=== PATIENT | female | born 1970 | race Two or more races ===

== ENCOUNTER 2016-10-03 16:50 | Emergency (ER) | payer SELFPAY ==
[2016-10-03 17:14] VITALS: BP 130/69
[2016-10-03] MEDS ORDERED: LIDOCAINE 1% INJ-PF (10 MG/ML) 30 ML SDV INJ ONE (17:54)
--- NOTE | 2016-10-03 17:55 | ER Document Report ---
HPI - HPI Patient complains to provider of: Finger laceration Onset: Just prior to arrival Onset/Duration: Sudden Quality of pain: Achy Pain Level: 2 Context: Patient states that she cut her finger today while trying to cut the skin off of a filet of fish. Associated Symptoms: Other - Finger laceration Exacerbated by: Denies Relieved by: Denies Similar symptoms previously: No Recently seen / treated by doctor: No - ROS ROS below otherwise negative: Yes Systems Reviewed and Negative: Yes All other systems reviewed and negative - GASTROINTESTINAL Gastrointestinal: DENIES: Nausea, Patient vomiting - DERM Skin Problems: Laceration Past Medical History - General Information source: Patient - Social History Smoking Status: Current Every Day Smoker Frequency of alcohol use: None Drug Abuse: None Lives with: Family Family History: Reviewed & Not Pertinent - Medical History Medical History: Negative Renal/ Medical History: Denies: Hx Peritoneal Dialysis Surgical Hx: Negative - Immunizations Immunizations up to date: No Vertical Provider Document - CONSTITUTIONAL Agree With Documented VS: Yes Exam Limitations: No Limitations General Appearance: WD/WN, No Apparent Distress - INFECTION CONTROL TRAVEL OUTSIDE OF THE [place] IN LAST 30 DAYS: No - HEENT HEENT: Atraumatic, Normocephalic - NECK Neck: Normal Inspection - RESPIRATORY Respiratory: No Respiratory Distress O2 Sat by Pulse Oximetry: 98 - CARDIOVASCULAR Pulses: Normal: Radial - MUSCULOSKELETAL/EXTREMETIES Musculoskeletal/Extremeties: RICARDO QUEEN - NEURO Level of Consciousness: Awake, Alert, Appropriate Motor/Sensory: No Motor Deficit - DERM Integumentary: Warm, Dry, Laceration - lateral aspect of left 2nd finger Course - Re-evaluation Re-evalutation: 10/03/16 Patient refuses a tetanus immunization, discussed risks with patient, patient continues to decline a tetanus immunization and agrees to sign refusal of treatment form. - Vital Signs Vital signs: Temp Pulse Resp BP Pulse Ox 98.9 F 103 H 16 130/69 H 98 10/03/16 17:06 10/03/16 17:06 10/03/16 17:06 10/03/16 17:06 10/03/16 17:06 Procedures - Laceration/Wound Repair Left 2nd digit Wound length (cm): 1 Wound's Depth, Shape: Linear Anesthetic type: 1% Lidocaine Wound explored: Clean Wound Repaired With: Sutures Suture Size/Type: 5:0, Nylon Number of Sutures: 3 Post-procedure wound care: Sterile dressing applied Post-procedure NV exam normal: Yes Complications: No Discharge - Discharge Clinical Impression: Finger laceration Qualifiers: Encounter type: initial encounter Finger: index finger Damage to nail status: without damage Foreign body presence: without foreign body Laterality: left Qualified Code(s): S61.211A - Laceration without foreign body of left index finger without damage to nail, initial encounter Condition: Stable Disposition: HOME, SELF-CARE Instructions: Laceration Care ([facility]), Antibiotic Ointment Protection ([facility]), Family Physicians / Practices Additional Instructions: Return immediately for any new or worsening symptoms Followup with your primary care provider, call tomorrow to make a followup appointment Suture removal in 8 days Referrals: [facility] [Provider Group] - Follow up as needed
== END 2016-10-03 19:29 | disposition home or self-care (01) ==
LOC: ER 16:50
PROC: 0HQGXZZ Repair Left Hand Skin, External Approach (ICD-10-PCS; principal; 2016-10-03)
DX: S61.211A Laceration without foreign body of left index finger without damage to nail, initial encounter (principal); W26.0XXA Contact with knife, initial encounter; Y93.89 Activity, other specified; F17.200 Nicotine dependence, unspecified, uncomplicated; Z53.20 Procedure and treatment not carried out because of patient's decision for unspecified reasons
CPT/HCPCS: 12001; 99282; J3490